=== PATIENT | male | born 1955 | race Asian ===

== ENCOUNTER 2017-12-02 06:41 | Inpatient (IN) | payer OTHER ==
[2017-12-02] VITALS (13 sets, daily range): BP systolic 107–172; BP diastolic 64–94; Ht 165.1 cm; Wt 56.4 kg
[~2017-12-02] VITALS: Ht 165.1 cm; Wt 56.4 kg
[2017-12-02 09:03] LABS: CALCIUM 7.2 mg/dL (8.5-10.1); CARBON DIOXIDE 29.8 mmol/L (21-32); CREATININE SERUM 3.5 mg/dL (0.7-1.3); POTASSIUM SERUM 4.1 mmol/L (3.5-5.1)
[2017-12-02 09:08] LABS: ALBUMIN 1.8 g/dL (3.4-5.0); BILIRUBIN TOTAL 0.7 mg/dL (0.20-1.00); TOTAL PROTEIN, SERUM 5.1 g/dL (6.4-8.2)
[2017-12-02 09:09] LABS: BASOPHIL % 0.4 % (0-2)
[2017-12-02 09:12] LABS: RED CELL DISTRIBUTION WIDTH 17.5 % (11.5-14.5)
[2017-12-02] MEDS ORDERED: LEVO-T50 MCG GT (11:12)
[2017-12-02] MEDS ORDERED: FERROUS SULFAT325 M2 PO (11:13)
[2017-12-02] MEDS ORDERED: GOOD SENSE ASPI81 M3 PO (11:13)
[2017-12-02] MEDS ORDERED: LASIX40 MG PO (11:14)
[2017-12-02] MEDS ORDERED: PRAVASTATIN SOD20 M1 PO (11:15)
[2017-12-02] MEDS ORDERED: TERAZOSIN HCL2 MG PO (11:15)
[2017-12-02] MEDS ORDERED: LABETALOL HCL100 MG PO (11:16)
[2017-12-02 11:43] LABS: PLATELET COUNT 72 x10^3mcL (130-400)
[2017-12-02 12:22] LABS: UA SPECIFIC GRAVITY 1.015 (1.005-1.035); microscopic required? YES; urine erythrocyte 2+ (NEGATIVE)
[2017-12-02 12:32] LABS: AMPHETAMINE QUAL UR NONE DETECTED (NEG <=1000)
[2017-12-02 13:05] LABS: MAGNESIUM 2.1 mg/dL (1.8-2.4); PHOSPHOROUS 5.2 mg/dL (2.5-4.9)
[2017-12-02 13:09] LABS: FREE THYROXINE INDEX 1.8 ug/dL (1.4-4.5)
[2017-12-02 13:22] LABS: T3 TOTAL 0.53 ng/mL
[2017-12-02 13:31] LABS: FREE T4 1.01 ng/dL (0.76-1.46)
[2017-12-03] VITALS (13 sets, daily range): BP systolic 98–139; BP diastolic 48–70
[2017-12-03 06:02] LABS: BASOPHIL % 0.2 % (0-2)
[2017-12-03 06:14] LABS: CALCIUM 7.1 mg/dL (8.5-10.1); CARBON DIOXIDE 28.3 mmol/L (21-32); MAGNESIUM 1.7 mg/dL (1.8-2.4); PHOSPHOROUS 2.5 mg/dL (2.5-4.9); PLATELET COUNT 115 x10^3mcL (130-400); POTASSIUM SERUM 3.2 mmol/L (3.5-5.1); RED CELL DISTRIBUTION WIDTH 17.3 % (11.5-14.5)
[2017-12-03 06:18] LABS: CHOLESTEROL/HDL RATIO 1.3
[2017-12-03 06:25] LABS: CREATININE SERUM 4.3 mg/dL (0.7-1.3)
== END 2017-12-03 19:59 | disposition expired | DRG 208 ==
LOC: ED 06:41 → IC 10:23
PROVIDERS: Emergency Medicine; Family Medicine
PROC: 5A1935Z Respiratory Ventilation, Less than 24 Consecutive Hours (ICD-10-PCS; principal; 2017-12-02)
PROC: 0BH17EZ Insertion of Endotracheal Airway into Trachea, Via Natural or Artificial Opening (ICD-10-PCS; 2017-12-02)
PROC: 30233L1 Transfusion of Nonautologous Fresh Plasma into Peripheral Vein, Percutaneous Approach (ICD-10-PCS; 2017-12-02)
PROC: 30233K1 Transfusion of Nonautologous Frozen Plasma into Peripheral Vein, Percutaneous Approach (ICD-10-PCS; 2017-12-02)
PROC: 5A12012 Performance of Cardiac Output, Single, Manual (ICD-10-PCS; 2017-12-02)
PROC: 02HV33Z Insertion of Infusion Device into Superior Vena Cava, Percutaneous Approach (ICD-10-PCS; 2017-12-02)
PROC: B548ZZA Ultrasonography of Superior Vena Cava, Guidance (ICD-10-PCS; 2017-12-02)
PROC: 5A1D70Z Performance of Urinary Filtration, Intermittent, Less than 6 Hours Per Day (ICD-10-PCS; 2017-12-03)
DX: J96.00 Acute respiratory failure, unspecified whether with hypoxia or hypercapnia (principal); N18.6 End stage renal disease; J69.0 Pneumonitis due to inhalation of food and vomit; G93.41 Metabolic encephalopathy; E43 Unspecified severe protein-calorie malnutrition; N17.0 Acute kidney failure with tubular necrosis; I50.43 Acute on chronic combined systolic (congestive) and diastolic (congestive) heart failure; Z68.1 Body mass index [BMI] 19.9 or less, adult; I13.2 Hypertensive heart and chronic kidney disease with heart failure and with stage 5 chronic kidney disease, or end stage renal disease; G93.1 Anoxic brain damage, not elsewhere classified; D68.9 Coagulation defect, unspecified; D63.1 Anemia in chronic kidney disease; N40.0 Benign prostatic hyperplasia without lower urinary tract symptoms; E11.22 Type 2 diabetes mellitus with diabetic chronic kidney disease; D69.6 Thrombocytopenia, unspecified; E03.9 Hypothyroidism, unspecified; E83.42 Hypomagnesemia; E87.6 Hypokalemia; E11.649 Type 2 diabetes mellitus with hypoglycemia without coma; E83.51 Hypocalcemia; E78.5 Hyperlipidemia, unspecified; Z99.2 Dependence on renal dialysis; Z87.891 Personal history of nicotine dependence
CPT/HCPCS: 36556; 36600; 83880; 84439; 87804; J1265; J1642; J1940; J2060; J2270; J2543; J2704; J3490; J7030; J7040; J7620; P9059; Q0092